=== PATIENT | female | born 1965 | race Caucasian/White ===

== ENCOUNTER 2017-10-17 07:20 | Inpatient (IN) | payer OTHER ==
[2017-10-17] VITALS (88 sets, daily range): BP systolic 55–134; BP diastolic 22–126
[~2017-10-17] VITALS: Ht 162.6 cm; Wt 118.0 kg
[~2017-10-17 07:20] MED LIST: AMLODIPINE BESY10 MG PO; ATENOLOL50 MG PO; LOSARTAN POTAS100 MG PO; ZOFRAN ODT4 MG SL; fioricet PO
--- OUTSIDE RECORDS SUMMARY | 2017-10-17 07:22 | XMS REPORT ---
Author Author [facility] Address Unknown Phone Unavailable Care Team Providers Care Felling Machine Operator Name Role Phone MARIE RAMIREZ Unavailable Unavailable Problems This patient has no known problems. Allergies, Adverse Reactions, Alerts This patient has no known allergies or adverse reactions. Medications This patient has no known medications. Results Test Description Test Time Test Comments Text Results Atomic Results Result Comments SPECIAL PROCEDURE IN WASHER CUTTER [place] [address] Patient Name: SARA WHEELER MR #: [id number] : 1965 Age/Sex: 51/F Req #: [id number] [facility] Physician: MARIE RAMIREZ MD Ordered by: MARIE RAMIREZ MD Report #: [id number] Location: [facility] Room/Bed: [place] [address] Procedure: [id number] IR/SPECIAL PROCEDURE IN WASHER CUTTER Exam Date: Exam Time: REPORT STATUS: Signed Inferior vena cava filter placement May 20, 2017 Pre-Procedure Diagnosis: DVT; severe anemia precluding anticoagulation Post-procedure Diagnosis:DVT; severe anemia precluding anticoagulation Senior Credit Officer: Agustín Alan Mechanical Research Engineer: None Sedation: None. Heart rate and oxygen saturation were monitored in real-time. Blood pressure was measured in 5 minute increments. 2 % lidocaine was used for local anesthesia. Radiation Dose: 2074.7 cGycm2 (Dose Area Product) Fluoroscopy time:1.1 minutes Estimate blood loss: <5 mL Blood administered: None Complications: None Implants/Grafts: Bard Erin inferior vena cava filter Specimen: None Procedure: Informed consent was obtained and the patient placed supine. A timeout was performed. The right neck was prepped and draped in standard sterile fashion. Using real-time ultrasound guidance the right internal jugular vein was accessed with an 18-gauge single wall needle. The needle was exchanged for the filter deployment sheath using standard Seldinger technique. An inferior vena cava venogram was performed (see findings below). A Bard Erin retrievable inferior vena cava filter was placed with the retrieval look at the level of the L2 pedicle without complication. There was less than 15 degrees filter tilt. Confirmation venogram was performed, followed by deployment sheath removal. Findings: Normal inferior vena cava. Suspected accessory left renal vein. Prominent middle sacral vein. Impression: Successful Bard [place] retrievable inferior vena cava filter placement. This report was generated with voice-recognition technology. Errors in medical transcription can occur. Please interpret accordingly and contact a radiologist if there are any questions regarding the report. Signed by: Dr. Jacek Alan M.D. on 05/21/2017 3:14 PM Dictated By: JACEK ALAN MD 13 Transcribed By: OSMANY on 05/21/17 151 COPY TO: MARIE RAMIREZ MD IR CONSULT [place] [address] Patient Name: SARA WHEELER MR #: [id number] : 1965 Age/Sex: 51/F Req #: [id number] Adm Physician: MARIE RAMIREZ MD Ordered by: MARIE RAMIREZ MD Report # : [id number] Location: [facility] Room/Bed: [place] [address] Procedure: [id number] DX/IR CONSULT Exam Date: Exam Time: REPORT STATUS: Signed Inferior vena cava filter placement May 20, 2017 Pre-Procedure Diagnosis: DVT; severe anemia precluding anticoagulation Post-procedure Diagnosis:DVT; severe anemia precluding anticoagulation Senior Credit Officer: Agustín Alan Mechanical Research Engineer: None Sedation: None. Heart rate and oxygen saturation were monitored in real-time. Blood pressure was measured in 5 minute increments. 2% lidocaine was used for local anesthesia. Radiation Dose: 2074.7 cGycm2 (Dose Area Product) Fluoroscopy time:1.1 minutes Estimate blood loss: <5 mL Blood administered : None Complications: None Implants/Grafts: Bard Erin inferior vena cava filter Specimen: None Procedure: Informed consent was obtained and the patient placed supine. A timeout was performed. The right neck was prepped and draped in standard sterile fashion. Using real-time ultrasound guidance the right internal jugular vein was accessed with an 18-gauge single wall needle. The needle was exchanged for the filter deployment sheath using standard Seldinger technique. An inferior vena cava venogram was performed ( see findings below). A Bard [place] retrievable inferior vena cava filter was placed with the retrieval look at the level of the L2 pedicle without complication. There was less than 15 degrees filter tilt. Confirmation venogram was performed, followed by deployment sheath removal. Findings: Normal inferior vena cava. Suspected accessory left renal vein. Prominent middle sacral vein. Impression: Successful Bard [place] retrievable inferior vena cava filter placement. This report was generated with voice-recognition technology. Errors in medical transcription can occur. Please interpret accordingly and contact a radiologist if there are any questions regarding the report. Signed by: Dr. Jacek Alan M.D. on 05/21/2017 3:14 PM Dictated By: JACEK ALAN MD [id number] Transcribed By: OSMANY on 05/21/17 1512 COPY TO: MARIE RAMIREZ MD
[2017-10-17] MEDS ORDERED: LIDOCAINE HCL 2% LOCAL 20 ML VIAL ONE (07:35)
[2017-10-17] MEDS ORDERED: FENTANYL CITRATE/PF 100MCG/2 ML INJ ONE (07:35)
[2017-10-17] MEDS ORDERED: IOPAMIDOL 370 MG/ML 200 ML INFUS..BTL INJ ONE (07:35)
[2017-10-17] MEDS ORDERED: MIDAZOLAM HCL 2 MG/2 ML VIAL ONE (07:35)
[2017-10-17] MEDS ORDERED: SODIUM CHLORIDE 0.9% 1000ML 2,000 ML ONE (07:36)
[2017-10-17] MEDS ORDERED: FLUMAZENIL 0.5MG/ 5ML VIAL ONE (08:20)
[2017-10-17] MEDS ORDERED: NALOXONE HCL INJ 0.4 MG/ML AMP ONE (08:44)
[2017-10-17] MEDS ORDERED: HYDROCORTISONE SOD SUCCINATE 100 MG VIAL ONE (09:01)
[2017-10-17] MEDS ORDERED: SODIUM CHLORIDE 0.9% 1000ML 1,000 ML ONE ×3 (09:07→17:10)
[2017-10-17] MEDS ORDERED: ATROPINE SULFATE 0.1 MG/ML 10ML SYR ONE (09:17)
[2017-10-17 09:37] LABS: BASOPHILS % 0.6 % (0.0-1.0); EOSINOPHILS # (AUTO) 0.1 (0.0-0.4); HEMATOCRIT 33.8 % (34.2-44.1); HEMOGLOBIN 11.2 g/dL (12.0-16.0); LYMPHOCYTES # (AUTO) 3.3 (1.0-3.2); LYMPHOCYTES % 47.7 % (18.0-39.1); MEAN CORPUSCULAR HEMOGLOBIN 28.9 pg (28-32); MEAN CORPUSCULAR HGB CONC 33.1 g/dL (31-35); MEAN CORPUSCULAR VOLUME 87.1 fL (81-99); MONOCYTES # (AUTO) 0.5 (0.2-0.8); MONOCYTES % 7.7 % (4.4-11.3); NEUTROPHILS # (AUTO) 2.9 (2.1-6.9); NEUTROPHILS % 41.7 % (38.7-80.0); PLATELET COUNT 197 x10e3/uL (140-360); RED BLOOD COUNT 3.88 x10e6/uL (3.6-5.1)
[2017-10-17] MEDS ORDERED: NOREPINEPHRINE 8 MG/D5W 250 ML 250 ML ONE (09:43)
[2017-10-17 09:47] LABS: INR 1.14; PROTHROMBIN TIME 13.7 seconds (11.9-14.5)
[2017-10-17 09:54] LABS: BLOOD UREA NITROGEN 14 mg/dL (7-26); BUN/CREATININE RATIO 18 (6-25); CALCIUM 8.4 mg/dL (8.4-10.2); CARBON DIOXIDE 21 mmol/L (22-29); CHLORIDE 109 mmol/L (98-107); CREATININE, SERUM 0.78 mg/dL (0.57-1.11); EST GLOMERULAR FILTRATION RATE > 60 ML/MIN (60-); GLUCOSE 134 mg/dL (74-118); SODIUM 138 mmol/L (136-145)
[2017-10-17 11:20] LABS: FREE THYROXINE INDEX 1.822 (1.4-3.8); THYROID STIMULATING HORMONE 4.408 uIU/mL (0.350-4.940)
--- NOTE | 2017-10-17 11:21 | Diagnostic Imaging Report ---
PROCEDURE: A single AP view of the chest. COMPARISON: None. INDICATIONS: CARDIAC WORK-UP POST IVC FILTER REMOVAL FINDINGS: Lines/tubes: None. Lungs: The lungs are well inflated and clear. There is no evidence of pneumonia or pulmonary edema. Low lung volumes are present bilaterally. Pleura: There is no pleural effusion or pneumothorax. Heart and mediastinum: The heart and the mediastinum are unremarkable. Bones: No acute bony abnormality. Degenerative changes are present in the thoracic spine. IMPRESSION: No acute radiographic abnormality. Dictated by: Roberto Uribe M.D. on 10/17/2017 at 11:23 Electronically approved by: Roberto Uribe M.D. on 10/17/2017 at 11:23
--- NOTE | 2017-10-17 11:32 | Diagnostic Imaging Report ---
PROCEDURE: A single AP view of the chest. COMPARISON: Portable chest 10/17/2017 at 1002 hrs.. INDICATIONS: CENTRAL LINE PLACEMENT FINDINGS: Lines/tubes: Right internal jugular temporary central venous catheter with tip projecting over the expected region of the right atrium. Lungs: The lungs are well inflated and clear. There is no evidence of pneumonia or pulmonary edema. Pleura: There is no pleural effusion or pneumothorax. Heart and mediastinum: The heart and the mediastinum are unremarkable. Bones: No acute bony abnormality. Degenerative changes of the thoracic spine. IMPRESSION: No acute radiographic abnormality. Dictated by: Roberto Uribe M.D. on 10/17/2017 at 11:33 Electronically approved by: Roberto Uribe M.D. on 10/17/2017 at 11:33
--- NOTE | 2017-10-17 12:21 | Diagnostic Imaging Report ---
PROCEDURE:ABDOMEN-1VIEW (KUB) TECHNIQUE:Supine AP abdomen totaling 2 radiographs INDICATION:IVC filter position; hypertension COMPARISON:[facility], [facility], IVC FILTER INSERT WITH S I, 05/20/2017, 18:13. [facility], [facility], SP VENOGRAM SUP S I, 10/17/2017, 7:10. FINDINGS: See conclusion. CONCLUSION: 1. IVC filter position unchanged from the baseline study of May 20, 2017. 2. Excreted intravenous contrast within the urinary bladder. Persistent nephrogram which may reflect a component of renal insufficiency. 3. No evidence of ascites. 4. Hepatomegaly. Normal bowel gas pattern. 5. Intact skeleton. Dictated by: Jaxon Alan M.D. on 10/17/2017 at 12:22 Electronically approved by: Jaxon Alan M.D. on 10/17/2017 at 12:22
[2017-10-17] MEDS ORDERED: ONDANSETRON HCL INJ 2 MG/ML VIAL ONE (12:22)
--- NOTE | 2017-10-17 13:29 | Consultation ---
DATE OF CONSULTATION: REQUESTING PHYSICIAN: Dr. Mack. REASON FOR CONSULT: Hypotension, pericardial effusion, suspected tamponade. HISTORY OF PRESENT ILLNESS: Ms. Rueda is a 51-year-old lady with past medical history as listed below, who was brought in for an IVC removal. Patient reported he was going to the procedure via internal jugular when she had episodes of ventricular tachycardia due to looping of the wire in the atrium. Patient was initially hypertensive and then became hypotensive, so it was suspected she could have had a pericardial tamponade, so an echocardiogram was called. Initially, Dr. Hollins was consulted; however, due to insurance reasons, the consult was changed to us. I was in the middle of a cardiac catheterization at [place]. I finished that and arrived here and they had just finished the echo. During the echo, patient has a small pericardial effusion, no definite evidence of tamponade. Patient was given IV fluids and Levophed. She was comfortable, offered no complaints, was hemodynamically stable with pressors. Heart rate was in the 70s, blood pressure was in the low 100s systolic. Patient did not complain of any dizziness, chest pain, or unusual shortness of breath. REVIEW OF SYMPTOMS CONSTITUTIONAL: Has some fatigue and weakness. HEENT: No headache, blurring of vision, seizures, or syncope. CARDIOVASCULAR: Patient denies any chest pain, shortness of breath, or palpitations. RESPIRATORY: No cough or fever. GI: No abdominal pain, vomiting, or diarrhea. ALLERGIES: No known drug allergies. MEDICATIONS: See list. PAST MEDICAL HISTORY: History of hypertension, history of pneumonia in the past, history of varicose veins, history of depression and anxiety, history of anemia. SOCIAL HISTORY: Does not smoke or drink. FAMILY HISTORY: Noncontributory. PHYSICAL EXAMINATION GENERAL: Obese lady, alert, oriented, not in any obvious distress. VITAL SIGNS: Heart rate is 74, blood pressure is 104/62 on the monitor. HEENT: Atraumatic. NECK: No JVD, bruit, thyromegaly, or lymphadenopathy. CARDIOVASCULAR: First and second heart sounds heard. No murmurs, rubs, or gallops appreciated. CHEST: Decreased air entry at the bases. No adventitious sounds appreciated. ABDOMEN: Obese, nontender. EXTREMITIES: No edema. LABORATORY AND DIAGNOSTIC DATA: EKG shows sinus rhythm at 64 beats per minute, normal axis, normal intervals, nonspecific ST-T changes. IMPRESSION 1. Hypotension. 2. History of hypertension. 3. History of anemia. 4. Obesity. 5. History of deep venous thrombosis and inferior vena cava filter. PLAN 1. Patient had an echocardiogram done, which showed a small pericardial effusion, no definite evidence of tamponade. 2. It is possible that patient could have had a vagal episode in addition to the small effusion. We will repeat echocardiogram later today. 3. Patient reportedly dropped blood pressure to the 60s - he has responded well to IV fluids and pressors. Her systolic has gone into the low 100s. 4. We will repeat an echocardiogram again later today. 5. CV surgery had been consulted, they are standby. 6. Discussed with patient about if her effusion worsens, she may require pericardiocentesis. Patient at the current time says no; however, we will repeat the echocardiogram and followup. 7. Patient is going to be transferred to the intensive care unit. As always, I appreciate and thank you very much for your referrals. Job#: [id number] VAS
[2017-10-17] MEDS ORDERED: NOREPINEPHRINE INJ 4MG/4ML 8 MG in DEXTROSE 5% 250ML 250 ML IV SCH (17:45)
[2017-10-17] MEDS ORDERED: NOREPINEPHRINE 8 MG/D5W 250 ML 250 ML IV SCH (18:00)
[2017-10-17] MEDS ORDERED: NOREPINEPHRINE 8 MG/D5W 250 ML 250 ML IV PRN (18:00)
[2017-10-17] MEDS: SODIUM CHLORIDE 0.9% 1000ML 1,000 ML IV SCH (19:10)
[2017-10-17] MEDS: TRAMADOL HCL 50 MG TAB PO PRN (20:05)
[2017-10-18] VITALS (37 sets, daily range): BP systolic 109–172; BP diastolic 61–121
[2017-10-18] MEDS: TRAMADOL HCL 50 MG TAB PO PRN ×3 (00:39→20:08)
--- NOTE | 2017-10-18 01:19 | Consultation ---
DATE OF CONSULTATION: CUT DICTATION (00:2) Job#: [id number] CQ
--- NOTE | 2017-10-18 01:41 | Consultation ---
DATE OF CONSULTATION: October 17, 2017 REASON FOR CONSULT: Pericardial effusion; requested by Dr. Gail Tapia. HISTORY: I saw and evaluated this patient on October 17, 2017. She is a 51-year-old lady with a history of IVC filter placement that was, apparently, placed for DVT. She was undergoing removal of the IVC filter when she, apparently, had several episodes of ventricular tachycardia, possibly due to looping of the wire in the atrium. She was, initially, hypertensive and then, became hypotensive and a pericardial effusion was suspected. An echocardiogram was performed. A small pericardial effusion was noted with no evidence of tamponade. Patient was treated with intravenous fluids and Levophed. Blood pressure improved. She became hemodynamically stable with some vasopressor support. Cardiac rate settled in the 70s and blood pressure in the low 100s systolic. Patient was transferred to the ICU. She, subsequently had a repeat echocardiogram, which by nurses report shows a smaller effusion. Reading is pending. There is no chest pain. Patient is resting comfortably. There is no JVD. No fevers or chills. ALLERGIES: NONE KNOWN. MEDICATIONS: See MAR. PAST MEDICAL HISTORY: Positive for hypertension, pneumonia, history of varicose veins, depression, and anxiety. SOCIAL HISTORY: Negative for smoking, alcohol, IV drugs. FAMILY HISTORY: No history of early coronary artery disease. REVIEW OF SYSTEMS GENERAL: Negative for fatigue and malaise. NEUROLOGIC: Negative for focal weakness in the extremities or dysarthria. HEENT: Negative for decreased vision or decreased hearing. CARDIAC: Positive as above. PULMONARY: Negative for shortness of breath or wheezing. GI: No constipation or diarrhea. : Negative for hematuria or dysuria. ENDOCRINE: Negative for polyuria or polydipsia. VASCULAR: Negative for claudication. SKIN: Negative for rashes or itching. HEMATOLOGIC: Negative for clotting or bleeding. INFECTIOUS: Negative for fevers or sweating. PSYCHIATRIC: Negative for depression or anxiety. PHYSICAL EXAMINATION GENERAL: Overweight lady, sitting up in bed in the ICU, in no apparent distress. VITAL SIGNS: Blood pressure 110/70, pulse 80 and regular, respirations 16 and unlabored. NECK: Supple and nontender. No JVD. CARDIAC: A regular rate and rhythm. Heart sounds are clear and not diminished. There is a normal S1 and S2. There is no audible murmur. No rub. LUNGS: Clear to auscultation and percussion bilaterally. ABDOMEN: Globoid, benign. Good bowel sounds. No hepatosplenomegaly. BACK: No CVA tenderness. No muscular spasm. EXTREMITIES: No cyanosis, clubbing or edema. VASCULAR: Carotids are 2+/2+ bilaterally. No carotid bruits. Radials and femorals 2+/2+ bilaterally. SKIN: No rashes or nonhealing ulcers. MUSCULOSKELETAL: Full range of motion at all joints. No joint swelling. NEUROLOGIC: Cranial nerves II-XII are intact. Sensation intact to light touch and pinprick bilaterally. Strength 5/5 in all extremities. LYMPHATICS: Negative for cervical, clavicular, femoral adenopathy. LABORATORY: White count 7.0, hemoglobin 11.2, hematocrit 33.8, platelet count is 197,000. By report, echocardiogram shows a smaller effusion. IMPRESSION: Pericardial effusion, which seems to be resolving. Hemodynamics are stable. Patient is comfortable. Will continue to follow. No indication for surgery at present. Thank you very much for asking me to see this nice lady. Job#: [id number]
[2017-10-18] MEDS: SODIUM CHLORIDE 0.9% 1000ML 1,000 ML IV SCH ×2 (02:24→11:37)
[2017-10-18 06:11] LABS: BASOPHILS % 0.3 % (0.0-1.0); EOSINOPHILS % 0.6 % (0.0-6.0); HEMATOCRIT 31.6 % (34.2-44.1); HEMOGLOBIN 10.2 g/dL (12.0-16.0); LYMPHOCYTES % 29.6 % (18.0-39.1); MEAN CORPUSCULAR HEMOGLOBIN 28.8 pg (28-32); MEAN CORPUSCULAR HGB CONC 32.3 g/dL (31-35); MEAN CORPUSCULAR VOLUME 89.3 fL (81-99); MONOCYTES # (AUTO) 0.5 (0.2-0.8); MONOCYTES % 7.7 % (4.4-11.3); NEUTROPHILS # (AUTO) 4.2 (2.1-6.9); NEUTROPHILS % 61.5 % (38.7-80.0); PLATELET COUNT 154 x10e3/uL (140-360); RED BLOOD COUNT 3.54 x10e6/uL (3.6-5.1); RED CELL DISTRIBUTION WIDTH 15.3 % (11.7-14.4)
[2017-10-18 06:20] LABS: ANION GAP 11.2 mmol/L (8-16); BLOOD UREA NITROGEN 18 mg/dL (7-26); BUN/CREATININE RATIO 28 (6-25); CALCIUM 8.8 mg/dL (8.4-10.2); CARBON DIOXIDE 21 mmol/L (22-29); CHLORIDE 111 mmol/L (98-107); CREATININE, SERUM 0.64 mg/dL (0.57-1.11); EST GLOMERULAR FILTRATION RATE > 60 ML/MIN (60-); GLUCOSE 97 mg/dL (74-118); POTASSIUM 4.2 mmol/L (3.5-5.1); SODIUM 139 mmol/L (136-145)
--- NOTE | 2017-10-18 07:07 | Diagnostic Imaging Report ---
EXAMINATION: CHEST SINGLE (PORTABLE) INDICATION: Status post procedure. COMPARISON: 10/17/2017 FINDINGS: TUBES and LINES: Right IJ central line catheter with tip at the level of the atrial caval junction. LUNGS: Lungs are not well inflated. Lungs are clear. There is mild prominence of the central pulmonary vasculature, consistent with pulmonary venous congestion. PLEURA: No pleural effusion or pneumothorax. HEART AND MEDIASTINUM: Cardiac size is moderately enlarged. BONES AND SOFT TISSUES: No acute osseous lesion. Soft tissues are unremarkable. UPPER ABDOMEN: No free air under the diaphragm. IMPRESSION: No acute thoracic abnormality. Signed by: Dr. Gil Garcia M.D. on 10/18/2017 7:03 AM
[2017-10-18] MEDS: ATENOLOL 50 MG TAB PO SCH ×4 (09:00→17:04)
[2017-10-18] MEDS: AMLODIPINE BESYLATE 10 MG TAB PO SCH ×3 (09:00→10:30)
[2017-10-18] MEDS: LOSARTAN POTASSIUM 100 MG TAB PO SCH ×2 (09:00→09:27)
[2017-10-18] MEDS ORDERED: AMLODIPINE BESYLATE 10 MG TAB ONE (09:32)
[2017-10-18] MEDS ORDERED: LOSARTAN POTASSIUM 100 MG TAB ONE (09:32)
[2017-10-18] MEDS ORDERED: ATENOLOL 50 MG TAB ONE (09:32)
[2017-10-18] MEDS ORDERED: LOSARTAN POTASSIUM 100 MG TAB PO SCH (17:00)
[2017-10-19] VITALS: BP 146/67
[2017-10-19 04:00] VITALS: BP 163/87
[2017-10-19 08:02] VITALS: BP 147/68
== END 2017-10-19 08:35 | disposition home or self-care (01) | DRG 287 ==
LOC: CATH LAB 07:20 → ICU 14:46 → MED/SURG 10-18 16:04
PROVIDERS: ADMIT Family Medicine; ATTEND Family Medicine
PROC: B5191ZZ Fluoroscopy of Inferior Vena Cava using Low Osmolar Contrast (ICD-10-PCS; principal; 2017-10-17)
PROC: B2141ZZ Fluoroscopy of Right Heart using Low Osmolar Contrast (ICD-10-PCS; 2017-10-17)
PROC: 02H633Z Insertion of Infusion Device into Right Atrium, Percutaneous Approach (ICD-10-PCS; 2017-10-17)
DX: I97.791 Other intraoperative cardiac functional disturbances during other surgery (principal); I47.2 Ventricular tachycardia; J90 Pleural effusion, not elsewhere classified; I31.3 Pericardial effusion (noninflammatory); I95.9 Hypotension, unspecified; Z68.41 Body mass index [BMI] 40.0-44.9, adult; Z95.828 Presence of other vascular implants and grafts; I10 Essential (primary) hypertension; Z86.718 Personal history of other venous thrombosis and embolism; F41.9 Anxiety disorder, unspecified; D64.9 Anemia, unspecified; E66.9 Obesity, unspecified
CPT/HCPCS: 36415; 37193; 71045; 74018; 75827; 77001; 80048; 82948; 84436; 84443; 84479; 85025; 85610; 93005; 93306; 93307; 93971; C1769; J1720; J2001; J2250; J2310; J2405; J7030; Q9967

== ENCOUNTER 2019-10-09 20:16 | Inpatient (IN) | payer OTHER ==
[~2019-10-09] VITALS: Ht 162.6 cm; Wt 117.9 kg
[2019-10-09] MEDS ORDERED: CEFEPIME 2 GM/NS 0.9% 100 ML 100 ML IV STA (20:38)
[2019-10-09] MEDS ORDERED: IBUPROFEN 600 MG TAB PO STA (20:38)
[2019-10-09] MEDS ORDERED: ONDANSETRON HCL INJ 2MG/ML 2ML 2 MG/ML VIAL IV STA (20:46)
[2019-10-09 21:00] LABS: STREPTOCOCCUS GRP A ANTIGEN NEGATIVE (NEGATIVE)
[2019-10-09 21:03] LABS: INFLUENZAE A&B ANTIGEN (RAPID) NEGATIVE (NEGATIVE)
[2019-10-09 21:22] LABS: BASOPHILS % 0.1 % (0.0-1.0); EOSINOPHILS % 0.1 % (0.0-6.0); HEMATOCRIT 41.6 % (34.2-44.1); HEMOGLOBIN 14.2 g/dL (12.0-16.0); LYMPHOCYTES # (AUTO) 1.2 (1.0-3.2); LYMPHOCYTES % 16.9 % (18.0-39.1); MEAN CORPUSCULAR HEMOGLOBIN 30.3 pg (28-32); MEAN CORPUSCULAR HGB CONC 34.1 g/dL (31-35); MEAN CORPUSCULAR VOLUME 88.9 fL (81-99); MONOCYTES # (AUTO) 0.3 (0.2-0.8); MONOCYTES % 4.8 % (4.4-11.3); NEUTROPHILS # (AUTO) 5.4 (2.1-6.9); NEUTROPHILS % 77.5 % (38.7-80.0); PLATELET COUNT 183 x10e3/uL (140-360); RED BLOOD COUNT 4.68 x10e6/uL (3.6-5.1)
[2019-10-09] MEDS ORDERED: AZITHROMYCIN 500MG/NS 250 ML 250 ML IV STA (21:22)
[2019-10-09 21:26] LABS: INR 0.9; PROTHROMBIN TIME 12.7 seconds (11.9-14.5)
[2019-10-09 21:27] LABS: PARTIAL THROMBOPLASTIN TIME 25.2 seconds (23.8-35.5)
--- NOTE | 2019-10-09 21:27 | Diagnostic Imaging Report ---
EXAMINATION: CHEST SINGLE (PORTABLE) INDICATION: Fever, short of breath COMPARISON: Chest x-ray 10/18/2017 FINDINGS: TUBES and LINES: None. LUNGS: Low lung volumes. Patchy airspace haziness in the bilateral mid lungs. PLEURA: No pleural effusion or pneumothorax. HEART AND MEDIASTINUM: Cardiac size is mildly enlarged. BONES AND SOFT TISSUES: No acute osseous lesion. Soft tissues are unremarkable. UPPER ABDOMEN: No free air under the diaphragm. IMPRESSION: Findings compatible with multifocal pneumonia, viral pneumonia is possible. Mild cardiomegaly. Findings discussed with Dr. Hendricks at 9:20 PM on 10/09/[address] Grant via telephone Signed by: Uday Grant DO on 10/09/2019 9:23 PM
[2019-10-09 21:34] LABS: ALANINE AMINOTRANSFERASE 31 IU/L (0-55); ALBUMIN 3.3 g/dL (3.5-5.0); ALBUMIN/GLOBULIN RATIO 0.8 (0.8-2.0); ALKALINE PHOSPHATASE 63 IU/L (40-150); ANION GAP 12.4 mmol/L (8-16); BLOOD UREA NITROGEN 10 mg/dL (7-26); BUN/CREATININE RATIO 13 (6-25); CALCIUM 9.8 mg/dL (8.4-10.2); CARBON DIOXIDE 26 mmol/L (22-29); CHLORIDE 101 mmol/L (98-107); CREATINE KINASE 74 IU/L (29-168); EST GLOMERULAR FILTRATION RATE > 60 ML/MIN (60-); GLUCOSE 111 mg/dL (74-118); POTASSIUM 3.4 mmol/L (3.5-5.1); SODIUM 136 mmol/L (136-145)
[2019-10-09] MEDS ORDERED: MORPHINE SULFATE INJ 4 MG/ML INJ 1ML IV STA (22:14)
[2019-10-09] MEDS ORDERED: SODIUM CHLORIDE 0.9% 1000ML 1,000 ML IV ONE ×2 (22:15→23:00)
[2019-10-09] MEDS ORDERED: SODIUM CHLORIDE 0.9% 1000ML 1,000 ML ONE (22:36)
[2019-10-09] MEDS ORDERED: MORPHINE SULFATE 2 MG/ML SYR 1ML ONE (22:36)
[2019-10-09] MEDS ORDERED: AZITHROMYCIN 500MG/SOD CHL 0.9% 250ML BAG IV SCH (23:00)
[2019-10-09] MEDS ORDERED: ACETAMINOPHEN 325 MG TAB PO PRN (23:00)
--- NOTE | 2019-10-09 23:49 | Consultation ---
DATE OF CONSULTATION: Pulmonary Critical Care Consultation CHIEF COMPLAINT: Cough, fever, and malaise. HISTORY OF PRESENT ILLNESS: The patient is a 53-year-old woman. In April of 2017, she had a deep vein thrombosis and vaginal bleeding. She required an IVC filter and hysterectomy. In September of 2017, she was scheduled to have her IVC filter removed. The removal was complicated by some twisting of the wire and injury to the right side of myocardium. She developed a small pericardial effusion and had to be observed in the hospital. The patient also has a history of hypertension. Over the past 10 days, she has felt ill. She notices some severe headaches. She also had more shortness of breath. She has had a dry cough. The last several days, she had a fever. She subsequently came to the ER and had an abnormal chest x-ray suggestive of pneumonia as well as an enlarged heart. PAST SURGICAL HISTORY: 1. Status post hysterectomy. 2. Status post [place] filter. PAST MEDICAL HISTORY: 1. Deep vein thrombosis. 2. Hypertension. SOCIAL HISTORY: The patient is not a smoker. She is not a drinker. She works in [employer] at the [employer]. She has no recent travel. ALLERGIES: THE PATIENT HAS NO KNOWN DRUG ALLERGIES. FAMILY HISTORY: Family history is noncontributory. REVIEW OF SYSTEMS: She does have some fever. She reports headache. She has no neck pain. She is not having any chest pain. She does have some cough and dyspnea. She had some nausea, but no vomiting. She has no abdominal pain. She has no leg edema. PHYSICAL EXAMINATION: VITAL SIGNS: The blood pressure is 160/75 and the pulse is 124. She is febrile to 100.8. Saturation is 94% on room air. HEENT: Shows no facial swelling or erythema. CARDIAC: Reveals regular rhythm with a tachycardia. There are no murmurs or rubs. LUNGS: Auscultation of lungs reveals few crackles at the bases. There is no wheezing. ABDOMEN: Soft and nontender. There is no rebound or guarding. EXTREMITIES: Shows no leg edema or calf tenderness. There is no cyanosis or clubbing. SKIN: Shows no rashes. NEUROLOGICAL: Shows no focal abnormalities. LABORATORY DATA: BUN to creatinine ratio is normal. The electrolytes are within normal limits. The white blood cell count is 7 and the hemoglobin is 14.2. The platelet count is 183. RADIOGRAPHIC DATA: Chest x-ray shows mild cardiomegaly. There are bilateral infiltrates, prominent in the right upper lobe as well as the left lower lobe. IMPRESSION: 1. Atypical pneumonia with possible COVID infection. 2. Hypertension. 3. Cardiomegaly on x-ray. 4. Headache. PLAN: 1. The patient will receive IV antibiotics. 2. Judicious use of IV fluids. 3. Echocardiogram. 4. Low-dose morphine for headache. 5. Coronavirus testing and cultures. Noé Birmingham MD [facility]/MODL /[id number]
[2019-10-10] VITALS (8 sets, daily range): BP systolic 120–159; BP diastolic 59–76
--- NOTE | 2019-10-10 00:54 | NUR ---
patient cam from ER, awake alert oriented, noted SOB with ambulation. vitals check, no fever at this time. iv fluid running at 100cc/hr to left AC Iv access. denied any pain, dry cough noted, will continue to monitor.
--- NOTE | 2019-10-10 02:30 | NUR ---
received call from ER,got informed that patient is positive rodarte virus, also dr Hendricks came to the room and talk to the patient and notified pt about it.
[2019-10-10] MEDS ORDERED: CEFEPIME 2 GM/NS 0.9% 100 ML 100 ML IV ONE (05:30)
[2019-10-10] MEDS ORDERED: CEFEPIME HCL 2 GM/SOD CHL 0.9% 100 ML BAG IV SCH (06:00)
[2019-10-10 06:42] LABS: BASOPHILS % 0.3 % (0.0-1.0); EOSINOPHILS % 0.1 % (0.0-6.0); HEMATOCRIT 38.4 % (34.2-44.1); HEMOGLOBIN 12.8 g/dL (12.0-16.0); LYMPHOCYTES # (AUTO) 1.1 (1.0-3.2); LYMPHOCYTES % 14.6 % (18.0-39.1); MEAN CORPUSCULAR HEMOGLOBIN 29.6 pg (28-32); MEAN CORPUSCULAR HGB CONC 33.3 g/dL (31-35); MEAN CORPUSCULAR VOLUME 88.9 fL (81-99); MONOCYTES # (AUTO) 0.4 (0.2-0.8); MONOCYTES % 4.8 % (4.4-11.3); NEUTROPHILS % 79.5 % (38.7-80.0); PLATELET COUNT 168 x10e3/uL (140-360); RED BLOOD COUNT 4.32 x10e6/uL (3.6-5.1); RED CELL DISTRIBUTION WIDTH 12.9 % (11.7-14.4)
[2019-10-10 07:18] LABS: ALANINE AMINOTRANSFERASE 27 IU/L (0-55); ALBUMIN/GLOBULIN RATIO 0.8 (0.8-2.0); ALKALINE PHOSPHATASE 55 IU/L (40-150); ANION GAP 10.9 mmol/L (8-16); BLOOD UREA NITROGEN 9 mg/dL (7-26); BUN/CREATININE RATIO 12 (6-25); CALCIUM 9.3 mg/dL (8.4-10.2); CARBON DIOXIDE 24 mmol/L (22-29); CHLORIDE 105 mmol/L (98-107); CREATININE, SERUM 0.77 mg/dL (0.57-1.11); EST GLOMERULAR FILTRATION RATE > 60 ML/MIN (60-); GLUCOSE 139 mg/dL (74-118); POTASSIUM 3.9 mmol/L (3.5-5.1); SODIUM 136 mmol/L (136-145)
--- NOTE | 2019-10-10 07:26 | History and Physical ---
CHIEF COMPLAINT: Ms. Amy Rueda comes in with fever and shortness of breath. HISTORY OF PRESENT ILLNESS: Ms. Amy Null was seen on video conference about 2 days ago with symptoms of COVID-19. The patient was asked to self isolate, was given some antibiotics and also inhalers. The patient progressively got worse and shortness of breath increased on walking. The patient came to the emergency room yesterday with presentation of COVID. Chest x-ray showed multifocal pneumonia on bilateral sides. The patient was admitted to the hospital. COVID-19 screen done. The patient has positive. The patient was admitted to the [facility] for positive COVID and also for viral pneumonia and currently is on antibiotics. PAST MEDICAL HISTORY: History of hypertension and history of iron deficiency anemia. PAST SURGICAL HISTORY: Hysterectomy and tubal ligations done in 2018, secondary to abdominal bleeding. MEDICATIONS: Currently include amlodipine 10 mg daily, atenolol 50 mg twice a day, losartan 200 mg daily. ALLERGIES: THE PATIENT HAS NO KNOWN DRUG ALLERGIES, EXCEPT THE PATIENT IS ANGLICAN AND DOES NOT TAKE ANY BLOOD PRODUCTS OR BLOOD TRANSFUSIONS. REVIEW OF SYSTEMS: Negative for chest pain. Positive for shortness of breath. Positive for some nausea. No vomiting. No diarrhea. No constipation. No rectal bleeding. No hematochezia. No hematemesis. Positive for cough. The patient, otherwise is just generally weak and fatigued. PHYSICAL EXAMINATION: VITAL SIGNS: Temperature is 99.1, pulse of 95, respirations of 20, blood pressure is 132/60, pulse oximetry of 88% on 2 L of nasal cannula. HEENT: Normocephalic, atraumatic. Pupils are reactive to light and accommodation. CVS: S1 and S2 normal. Regular rate and rhythm. LUNGS: Decreased air entry into both lung lovell. Positive for rhonchi bilaterally. Decreased air entry. ABDOMEN: Nontender. Nondistended. EXTREMITIES: Positive for trace edema. LABORATORY VALUES: Initial white count of 7.03, hemoglobin of 14.2, hematocrit 41.6, lymphocytes of 16.9. Chemistries; sodium 136, potassium is 3.4, BUN of 10, creatinine 0.80, albumin is 3.3, globulin 4.2. Coags; INR 0.90. Serology, coronavirus positive and detected. Influenza A was negative. Group A screen was negative. MICROBIOLOGY: Blood cultures are pending. Further cultures are pending. IMAGING STUDIES: Done by the ER. Chest x-ray showed finding of multifocal pneumonia while pneumonia possible. ASSESSMENT: Ms. Amy Rueda with: 1. Viral pneumonia. 2. COVID-related disease. 3. Extreme fatigue and cough. 4. Morbid obesity. 5. Hypertension. 6. Hyperlipidemia. PLAN: At this time, the patient is currently on cefepime and azithromycin 500 mg q.24 hours and 2 g of cefepime q.8 hours, acetaminophen has been given for pain and fever control, losartan and atenolol has been reinstituted into her regimen. Plan, continue to keep her in the COVID [facility]. Keep her isolated, respiratory isolation, and the patient will be monitored throughout the 24 hours and we will continue monitoring her for the next couple of days and until she is asymptomatic and fever free. Further recommendation per clinical course. Consult have been done for both Pulmonology and Dr. Valladares, Infectious Disease. For further information, look into the chart. MD [facility]/MODL /[id number]
[2019-10-10 08:07] LABS: CREATINE KINASE MB 1.5 ng/mL (0-5.0)
--- NOTE | 2019-10-10 08:15 | NUR ---
upon assessment, patient's o2 saturation in room air was 85%. patient declined at the time to put on o2. states she doesn't feel short of breath and did not appear to be struggling to breathe. she did place herself on nasal cannula before I left room.
[2019-10-10] MEDS: LOSARTAN POTASSIUM 100 MG TAB PO SCH (08:56)
[2019-10-10] MEDS: ATENOLOL 50 MG TAB PO SCH ×2 (08:56→17:00)
--- NOTE | 2019-10-10 09:06 | NUR ---
CONSULT [id number]
--- NOTE | 2019-10-10 09:19 | NUR ---
Telephonic visit. Pt did not answer. Will follow as able. JEFFRY HERNANDEZ Circle Saw Operator Spiritual Care Department O: [phone]
--- NOTE | 2019-10-10 10:31 | Diagnostic Imaging Report ---
EXAMINATION: CHEST SINGLE (PORTABLE) INDICATION: Pneumonia COMPARISON: Chest radiographs of 10/18/2017 and 10/09/2019 FINDINGS: LINES/TUBES:EKG leads overlie the chest. LUNGS:The lung volumes are low. Patchy left peripheral midlung opacities and right perihilar opacities. PLEURA:No pleural effusion or pneumothorax. MEDIASTINUM:The cardiomediastinal silhouette appears unchanged in size and shape. BONES/SOFT TISSUES:No acute osseous injury. ABDOMEN:No free air under the diaphragm. IMPRESSION: Unchanged bilateral opacities, compatible with multifocal pneumonia. Signed by: Wang Gaytan MD on 10/10/2019 10:28 AM
--- NOTE | 2019-10-10 10:56 | Consultation ---
DATE OF CONSULTATION: REASON FOR CONSULTATION: Viral infection COVID-19, infection hypoxemia. HISTORY OF PRESENT ILLNESS: This patient who is a 53-year-old female history of obesity, otherwise in good health, comes in with 10 days with fever and chills, not feeling well. The patient has been on self isolation, but she has been getting progressively worse with shortness of breath, came to the emergency room and chest x-ray showed multifocal pneumonia, discussed with ER physician yesterday. The patient was seen again earlier today. The patient presentation was very concerning for COVID-19 that test was done and came back positive. PAST MEDICAL HISTORY: Hypertension, obesity and anemia. PAST SURGICAL HISTORY: Hysterectomy, tubal ligation 2018. ALLERGIES: NKA. SOCIAL HISTORY: There is no smoking, drug abuse, or alcohol abuse. She have a daughter and granddaughter who lives with her. She has not been traveling. There is no contact with anyone just she knows off. She was in office by herself in the last couple of weeks. LABORATORY DATA: Otherwise reviewed. White count 7.54, hemoglobin 12. Her COVID-19 was detected by PCR. Influenza A and B were negative. Sodium 136, creatinine 0.8. PHYSICAL EXAMINATION: GENERAL: Currently alert, oriented, does not seem to be in acute distress. VITAL SIGNS: Stable, currently afebrile. HEENT: Normocephalic. NECK: Supple. CHEST: Few crackles. COR: S1, S2. No S3, S4 or murmur. ABDOMEN: Soft. IMPRESSION: 1. COVID-19, present on admission, concerned about superimposed bacterial pneumonia. We will put Rocephin and azithromycin. 2. Dehydration. We will give normal saline at 100 mL an hour. 3. Hypoxemia. She use oxygen as needed, O2 saturation more than 91%. Continued to have cough. We will follow clinically. MD LI Rogers/ALISA /[id number]
[2019-10-10] MEDS ORDERED: SOD CHL 0.45%/POT CHL 20MEQ 1,000 ML IV SCH (11:00)
--- NOTE | 2019-10-10 12:05 | NUR ---
patient saturation 89% on 2L. Dr. Birmingham aware. Patient does not appear to be having any difficultly breathing.
--- NOTE | 2019-10-10 13:22 | Progress Note ---
DATE: SUBJECTIVE: The patient had some low oxygen saturations late last night and early this morning. She is requiring supplemental oxygen at 2 L. Her heart rate is improved. She does not complain of dyspnea. She does have some cough. PHYSICAL EXAMINATION: VITAL SIGNS: The blood pressure is 129/59, saturation is now 89% on 2 L. HEENT: No facial swelling or erythema. CARDIAC: Regular rate and rhythm with normal S1, S2. LUNGS: Auscultation of lungs reveals few crackles at the bases. There is no wheezing. ABDOMEN: Soft, nontender. There is no rebound or guarding. EXTREMITIES: No leg edema or calf tenderness. There is no cyanosis or clubbing. SKIN: No rashes. NEUROLOGICAL: No focal abnormalities. LABORATORY DATA: CBC is normal. The electrolytes are within normal limits. IMPRESSION: 1. Viral pneumonia. 2. COVID-19 infection. 3. Hypertension. 4. Headache. PLAN: 1. Continue oxygen supplementation. 2. Judicious use of IV fluids. 3. Pain control. 4. Continue to monitor oxygen saturations. 5. Continue azithromycin. Noé Birmingham MD [facility] /[id number]
--- NOTE | 2019-10-10 14:00 | NUR ---
patient assisted to shower and back to bed. tele leads replaced. patient declines to wear pulse ox monitor.
[2019-10-10] MEDS ORDERED: CEFEPIME 2 GM/NS 0.9% 100 ML 100 ML IV SCH (16:00)
--- NOTE | 2019-10-10 16:44 | NUR ---
charge nurse or house sup to come attempt IV start due to right AC being very painful.
--- NOTE | 2019-10-10 17:42 | NUR ---
discharge door operator unable to get IV. patient refusing any other attempts for IV access or blood draws. Dr. mina notified and abx switched to PO form. patient aware to ensure hydration by drinking fluids.
--- NOTE | 2019-10-10 19:00 | NUR ---
Report received from morning nurse. Pt with no acute distress.
[2019-10-10] MEDS ORDERED: AZITHROMYCIN 250 MG TAB PO SCH (21:00)
[2019-10-10] MEDS ORDERED: AZITHROMYCIN 500MG/NS 250 ML 250 ML IV SCH (21:00)
[2019-10-10] MEDS ORDERED: AZITHROMYCIN 500MG/SOD CHL 0.9% 250ML BAG IV SCH (22:00)
[2019-10-11 00:47] VITALS: BP 156/69
[2019-10-11 05:37] VITALS: BP 138/64
--- NOTE | 2019-10-11 08:00 | NUR ---
Patient's did not have an IV when this nurse arrived, patient refused to get another.
--- NOTE | 2019-10-11 08:21 | NUR ---
Patient refused lab work to be drawn saying "I am sick of being stuck". Reported to lab. Will continue to monitor.
[2019-10-11] MEDS: ATENOLOL 50 MG TAB PO SCH (08:32)
[2019-10-11] MEDS: LOSARTAN POTASSIUM 100 MG TAB PO SCH (08:32)
[2019-10-11 08:34] VITALS: BP 150/71
[2019-10-11] MEDS ORDERED: AZITHROMYCIN 250 MG TAB PO SCH (09:00)
--- NOTE | 2019-10-11 14:32 | NUR ---
Patient recieved a discharge order from Dr. Espinosa. Patient has oxygen being delivered to her home today. In the meantime, patient has oxygen being delivered to [facility] to go home on. Patient has no issues or complaints. Will assist patient in collecting belongings and getting her discharge paper work set up for her. Addendum: 10/11/19 at 1557 by Kyara Ray RN Patient left via private auto with oxygen at 1550.
--- NOTE | 2019-10-11 14:34 | NUR ---
Rec'd order for home oxygen to be delivered today, pt wants to go home today. Spoke w/ Dr. Birmingham and rec'd order. Kath AGUDELO did home O2 eval. Pt needs home oxygen. Rec'd Choice letter w/ verbal consent. Notified Ravi Avendano with [facility] and faxed clinical. He stated they will be able to get oxygen to pt today. Notified nurse, Kath AGUDELO that pt will receive oxygen today in her hospital room. Explained she cannot go home w/o it for safety reasons. Kath AGUDELO verbalized understanding. [facility] Ravi Avendano cell: [phone] fax: [phone]
--- NOTE | 2019-10-11 14:39 | NUR ---
confirmed fax rec'd w/ Ravi ([facility]). He stated ETA of oxygen should be about 45 minutes
--- NOTE | 2019-10-11 14:56 | Progress Note ---
DATE: SUBJECTIVE: The patient is insisting on going home. She is asymptomatic despite having low oxygen saturation. She is requiring 3 L of oxygen. She does have some cough. PHYSICAL EXAMINATION: VITAL SIGNS: Blood pressure is 150/71, saturation is 91% on 3 L. HEENT: No facial swelling or erythema. CARDIAC: Regular rate and rhythm with normal S1, S2. LUNGS: Auscultation of the lungs shows clear breath sounds bilaterally. ABDOMEN: Soft, nontender. There is no rebound or guarding. EXTREMITIES: No leg edema. IMPRESSION: 1. Viral pneumonia. 2. COVID-19. PLAN: 1. Because of the patient's hypoxemia, she is at some risk for worsening respiratory failure. 2. I have discussed with Infectious Disease the possibility of using but it is not available at this time. It is not even available on compassionate use. 3. Given the patient's strong desire to go home, I favor discharging her with home oxygen at 3 L. 4. She should follow up for any worsening cough or shortness of breath. 5. She should use Tylenol at home. She should avoid Motrin. MD DELFINO Wilkins/ALISA /[id number]
== END 2019-10-11 16:15 | disposition home or self-care (01) | DRG 177 ==
LOC: ER 20:16 → ERHOLD 23:02 → IMCU 10-10 00:20
PROVIDERS: ADMIT Family Medicine; ATTEND Family Medicine
DX: U07.1 COVID-19 (principal); J18.9 Pneumonia, unspecified organism; J12.89 Other viral pneumonia; J96.01 Acute respiratory failure with hypoxia; Z68.41 Body mass index [BMI] 40.0-44.9, adult; I10 Essential (primary) hypertension; E86.0 Dehydration; Z86.718 Personal history of other venous thrombosis and embolism; Z79.01 Long term (current) use of anticoagulants; I51.7 Cardiomegaly
CPT/HCPCS: 36415; 71045; 80053; 82550; 82553; 83518; 83605; 83880; 84484; 85025; 85610; 85730; 87040; 87070; 87400; 87635; 93005; 93306; 96374; 99284; J0456; J2270; J2405; J7030